=== PATIENT | female | born 2000 | race Caucasian/White ===

== ENCOUNTER 2021-02-16 22:58 | Emergency (ER) | payer OTHER, SELFPAY ==
[2021-02-17 00:19] VITALS: BP 92/54; PULSE 62; RESP 16; TEMP 36.6; O2SAT 99; BMI 20.2
[2021-02-17 00:40] LABS: Glucose Urine UA NEG (NEG); Leukocyte Esterase Urine NEG (NEG); Nitrite Urine NEG (NEG); Specific Gravity - Urine 1.015 (1.005-1.025); Urine Blood NEG (NEG); Urine Ketones NEG (NEG); Urine Protein NEG (NEG-TRACE)
[2021-02-17 00:42] LABS: Appearance Urine CLEAR; Color Urine YELLOW
[2021-02-17 00:43] LABS: UPreg QC Valid YES; Urine Pregnancy NEGATIVE (NEGATIVE)
[2021-02-17 00:53] LABS: COVID-19 Test Negative (Negative); IDNOW Serial# 9DD0AD1C
[2021-02-17 01:32] LABS: MANUAL DIFF FLAG NO
[2021-02-17 01:33] LABS: Basophils Percent Auto 0.4 % (0-2); Eosinophils Absolute Auto 0.2 X10*3/uL (0.0-0.4); Eosinophils Percent Auto 2.4 % (0-4); Hematocrit 38.7 % (37-47); Hemoglobin 12.9 g/dl (12.0-16.0); Imm Gran Abs Auto 0.01 X10*3/uL (0.00-0.03); Imm Gran Pct Auto 0.1 % (0.0-0.4); Lymphocytes Absolute Auto 2.7 X10*3/uL (1.2-4.9); Lymphocytes Percent Auto 35.1 % (20-40); Mean Corpuscular HGB Conc 33.3 g/dl (31.0-35.0); Mean Corpuscular Hemoglobin 31.7 pg (27.0-33.0); Mean Corpuscular Volume 95.1 fL (80-98); Mean Platelet Volume 8.6 fL (9.4-12.3); Monocytes Absolute Auto 0.6 X10*3/uL (0.1-1.2); Monocytes Percent Auto 7.9 % (2-11); Neutrophils Absolute Auto 4.1 X10*3/uL (2.0-8.3); Neutrophils Percent Auto 54.1 % (45-73); Platelet Count 225 X10*3/uL (160-400); Red Blood Count 4.07 X10*6/uL (4.20-5.50); Red Cell Distribution Width 13.1 % (11.0-16.0); White Blood Count 7.6 X10*3/uL (4.8-10.8)
[2021-02-17 02:03] LABS: Alanine Aminotransferase 13 U/L (0-31); Albumin Level 4.2 g/dL (3.5-5.0); Alkaline Phosphatase 47 U/L (39-117); Anion Gap 9 (12-20); Aspartate Amino Transferase 15 U/L (5-31); Bilirubin Direct 0.5 mg/dL (0.0-0.5); Bilirubin Total 1.1 mg/dL (0.0-1.0); Blood Urea Nitrogen 8 mg/dL (9-16); Calcium 9.1 mg/dL (8.4-10.2); Carbon Dioxide 30 mmol/L (22-29); Chloride 102 mmol/L (96-108); Creatinine Clr Calc Pharmacy 79.8; Estimated Glomerular Filt Rate > 60; Glucose Random 99 mg/dL (60-115); Lipase 12 U/L (8-78); Potassium 4.3 mmol/L (3.3-5.1); Sodium 137 mmol/L (135-145); Total Protein 6.7 g/dL (6.5-8.0)
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
[2021-02-17 02:33] LABS: HCG Quantitative < 2 mIU/mL
[2021-02-17] MEDS: 0.9 % Sodium Chloride 1,000 ML 999 ML IVCONT (02:34)
[2021-02-17] MEDS: ondansetron HCL 4 MG/2 ML VIAL IVPUSH (02:35)
[2021-02-17] MEDS: Magnesium Hydrox/Alum Hydrox 30 ML ORAL.SUSP PO (02:36)
[2021-02-17] MEDS: Lidocaine HCl Viscous 2 % 15 ML SOLUTION MUCOUS MEM (02:36)
== END 2021-02-17 03:15 | disposition home or self-care (01) ==
PROVIDERS: Emergency Provider Emergency Medicine
DX: E86.0 Dehydration (principal); R11.2 Nausea with vomiting, unspecified; R19.7 Diarrhea, unspecified; Z20.822 Contact with and (suspected) exposure to COVID-19; Z79.899 Other long term (current) drug therapy
CPT/HCPCS: 36415; 80048; 80076; 81003; 81025; 83690; 84702; 85025; 87635; 96361; 96374; 99283; 99284; J2405

== ENCOUNTER 2021-03-03 10:43 | Emergency (ER) | payer OTHER, SELFPAY ==
--- NOTE | ~2021-03-03 | US_ITS ---
EXAMINATION: PELVIC ULTRASOUND CLINICAL INFORMATION: Left lower abdominal and pelvic pain. Rule out ectopic . Positive urine test. COMPARISON: None TECHNIQUE: Transabdominal and transvaginal pelvic ultrasound was performed. Transvaginal exam was performed for better visualization of the uterus and ovaries. FINDINGS: Uterus measures 8.2 x 4.5 x 5.6 cm in dimension. No focal uterine lesion is seen. Endometrial thickness measures 1.3 cm. The cervix is normal appearing. The right ovary measures 2.3 x 1.6 x 1.4 cm and is normal-appearing. The left ovary measures 2.7 x 2.5 x 2.1 cm. There is a small slightly complex left ovarian cyst with slightly thickened irregular alonso measuring 1.4 x 1.1 x 1.2 cm. Arterial and venous and color flow is documented to both ovaries. There is no evidence of torsion. There is trace fluid in the pelvis. US/US pelvic and transvaginal IMPRESSION: No intrauterine seen. Small 1.4 x 1.1 x 1.2 cm left ovarian cyst. Trace fluid in the pelvis. Differential would include an early intrauterine , ectopic and missed . Correlation with quantitative beta hCG exam and follow-up OB ultrasound recommended. No evidence of ovarian torsion.
--- NOTE | ~2021-03-03 | US_ITS ---
EXAMINATION: PELVIC ULTRASOUND CLINICAL INFORMATION: Left lower abdominal and pelvic pain. Rule out ectopic . Positive urine test. COMPARISON: None TECHNIQUE: Transabdominal and transvaginal pelvic ultrasound was performed. Transvaginal exam was performed for better visualization of the uterus and ovaries. FINDINGS: Uterus measures 8.2 x 4.5 x 5.6 cm in dimension. No focal uterine lesion is seen. Endometrial thickness measures 1.3 cm. The cervix is normal appearing. The right ovary measures 2.3 x 1.6 x 1.4 cm and is normal-appearing. The left ovary measures 2.7 x 2.5 x 2.1 cm. There is a small slightly complex left ovarian cyst with slightly thickened irregular alonso measuring 1.4 x 1.1 x 1.2 cm. Arterial and venous and color flow is documented to both ovaries. There is no evidence of torsion. There is trace fluid in the pelvis. US/US OB pelvic and transvaginal IMPRESSION: No intrauterine seen. Small 1.4 x 1.1 x 1.2 cm left ovarian cyst. Trace fluid in the pelvis. Differential would include an early intrauterine , ectopic and missed . Correlation with quantitative beta hCG exam and follow-up OB ultrasound recommended. No evidence of ovarian torsion.
[2021-03-03 10:53] VITALS: BP 110/70; PULSE 93; O2SAT 99
[2021-03-03 11:30] VITALS: BP 129/76; PULSE 85; RESP 18; TEMP 36.9; O2SAT 99; BMI 21.6
[2021-03-03 11:48] LABS: Glucose Urine UA NEG (NEG); Leukocyte Esterase Urine NEG (NEG); Nitrite Urine NEG (NEG); Urine Blood NEG (NEG); Urine Ketones NEG (NEG); Urine Protein NEG (NEG-TRACE)
[2021-03-03 11:49] LABS: Appearance Urine CLEAR; Color Urine YELLOW
[2021-03-03 11:50] LABS: UPreg QC Valid YES; Urine Pregnancy POSITIVE (NEGATIVE)
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
[2021-03-03 14:06] LABS: HCG Quantitative 72 mIU/mL
[2021-03-03 15:29] VITALS: BP 112/86; PULSE 95; RESP 16; TEMP 36.7; O2SAT 99
== END 2021-03-03 15:41 | disposition home or self-care (01) ==
PROVIDERS: Physician Assistant; Emergency Provider Emergency Medicine
DX: O26.891 Other specified pregnancy related conditions, first trimester (principal); R10.31 Right lower quadrant pain; Z3A.08 8 weeks gestation of pregnancy
CPT/HCPCS: 36415; 76380; 76801; 76817; 76830; 76856; 81003; 81025; 84702; 99284

== ENCOUNTER 2021-03-11 11:06 | Outpatient (REF) | payer OTHER, SELFPAY ==
--- NOTE | ~2021-03-11 | US_ITS ---
EXAMINATION: US OBSTETRICAL ULTRASOUND CLINICAL INFORMATION: Recent left lower quadrant and pelvic pain. No intrauterine noted on prior ultrasound. Follow-up. COMPARISON: Pelvic ultrasound 03/03/2021. LMP: Unknown. Gestational age by maternal dates is unknown. TECHNIQUE: Ultrasound of the maternal pelvis is performed using transabdominal and transvaginal transducers. Transvaginal imaging is performed due to inadequate visualization transabdominally. M-mode Doppler is also performed. FINDINGS: There is interval small intrauterine gestational sac suggested with average sac dimension only 0.5 cm corresponding to a of approximately 5 weeks 0 days. There is no visible yolk sac or embryo at this time. No subchorionic hemorrhage or hematoma seen. MATERNAL ADNEXA: The right maternal ovary measures 2.1 x 1.3 x 1.7 cm. The left maternal ovary measures 2.1 x 1.9 x 2.1 cm. Again, there is a left intraovarian corpus luteum measuring approximately 1.0 cm size with typical crenated inner wall. This is decreased in size from prior measurement 1.4 x 1.1 cm. There is no interval adnexal mass or maternal pelvic ascites. US/US OB <= 14 weeks fetus IMPRESSION: 1. Small intrauterine gestational sac only 5 mm size (estimated 5 wks 0 days). 2. No visible yolk sac or embryo at this time. 3. Small left adnexal corpus luteum 1.0 cm. 4. Follow-up beta-hCG and ultrasound suggested to confirm developing intrauterine .
--- NOTE | ~2021-03-11 | US_ITS ---
EXAMINATION: US OBSTETRICAL ULTRASOUND CLINICAL INFORMATION: Recent left lower quadrant and pelvic pain. No intrauterine noted on prior ultrasound. Follow-up. COMPARISON: Pelvic ultrasound 03/03/2021. LMP: Unknown. Gestational age by maternal dates is unknown. TECHNIQUE: Ultrasound of the maternal pelvis is performed using transabdominal and transvaginal transducers. Transvaginal imaging is performed due to inadequate visualization transabdominally. M-mode Doppler is also performed. FINDINGS: There is interval small intrauterine gestational sac suggested with average sac dimension only 0.5 cm corresponding to a of approximately 5 weeks 0 days. There is no visible yolk sac or embryo at this time. No subchorionic hemorrhage or hematoma seen. MATERNAL ADNEXA: The right maternal ovary measures 2.1 x 1.3 x 1.7 cm. The left maternal ovary measures 2.1 x 1.9 x 2.1 cm. Again, there is a left intraovarian corpus luteum measuring approximately 1.0 cm size with typical crenated inner wall. This is decreased in size from prior measurement 1.4 x 1.1 cm. There is no interval adnexal mass or maternal pelvic ascites. US/US OB transvaginal IMPRESSION: 1. Small intrauterine gestational sac only 5 mm size (estimated 5 wks 0 days). 2. No visible yolk sac or embryo at this time. 3. Small left adnexal corpus luteum 1.0 cm. 4. Follow-up beta-hCG and ultrasound suggested to confirm developing intrauterine .
[2021-03-11 12:11] LABS: HCG Quantitative 2417 mIU/mL
[2021-03-12 01:26] LABS: CT PCR NOT DETECTED (Not Detect.); NG PCR NOT DETECTED (Not Detect.)
== END 2021-03-11 11:07 | disposition home or self-care (01) ==
LOC: HO.LAB 11:06
PROVIDERS: Visit Provider Obstetrics & Gynecology
DX: O26.891 Other specified pregnancy related conditions, first trimester (principal); R10.32 Left lower quadrant pain; R10.2 Pelvic and perineal pain; Z3A.01 Less than 8 weeks gestation of pregnancy
CPT/HCPCS: 36415; 76801; 76817; 84702; 87491; 87591; 99212

== ENCOUNTER 2021-03-26 14:37 | Outpatient (REF) | payer OTHER, SELFPAY ==
--- NOTE | ~2021-03-26 | US_ITS ---
EXAMINATION: US OBSTETRICAL ULTRASOUND CLINICAL INFORMATION: Cramping. Confirm intrauterine . COMPARISON: Previous exam 03/11/2021. LMP: Unknown. Gestational age by maternal dates is . Estimated date of delivery by maternal dates is . TECHNIQUE: Transabdominal first trimester OB ultrasound FINDINGS: There is a single intrauterine gestational sac with visible yolk sac, embryo/fetus, and cardiac activity. There is no significant subchorionic hemorrhage or hematoma. HR: 117 beats per minute. CRL (crown rump length): 0.56 cm (6 weeks 3 days +/- 4 days). MORGAN (estimated date of delivery): 11/16/2021 +/- 4 days. MATERNAL ADNEXA: The right maternal ovary measures 2.4 x 1.7 x 3.1 cm. normal. The left maternal ovary measures 3 x 2.1 x 2.7 cm. There is a 1.5 cm complex cyst probably representing a corpus luteum. There is no significant maternal adnexal mass. No maternal pelvic ascites. US/US OB <= 14 weeks fetus IMPRESSION: 1. Single intrauterine gestation with ultrasound gestational age of 6 weeks 3 days +/- 4 days. 2. Estimated date of delivery is 11/16/2021 +/- 4 days. 3. No maternal adnexal mass or pelvic ascites.
== END 2021-03-26 14:38 | disposition home or self-care (01) ==
LOC: HO.US 14:37
PROVIDERS: Visit Provider Obstetrics & Gynecology
DX: O26.891 Other specified pregnancy related conditions, first trimester (principal); Z3A.01 Less than 8 weeks gestation of pregnancy
CPT/HCPCS: 76801

== ENCOUNTER 2021-03-31 08:43 | Emergency (ER) | payer OTHER, SELFPAY ==
--- NOTE | ~2021-03-31 | US_ITS ---
EXAMINATION: US OBSTETRICAL ULTRASOUND CLINICAL INFORMATION: Pain and bleeding COMPARISON: Previous exam March 11 and 03/26/2021. LMP: Unknown. Gestational age by maternal dates is . Estimated date of delivery by maternal dates is . TECHNIQUE: Transabdominal first trimester OB ultrasound FINDINGS: There is a single intrauterine gestational sac with visible yolk sac, embryo/fetus, and cardiac activity. There is no significant subchorionic hemorrhage or hematoma. Size agrees with date from prior exam. HR: 142 beats per minute. CRL (crown rump length): 1.1 cm (7 weeks 2 days +/- 4 days). MORGAN (estimated date of delivery): 11/15/2021 +/- 4 days. MATERNAL ADNEXA: The right maternal ovary measures 1.8 x 1.9 x 1.4 cm. The left maternal ovary measures 2.3 x 2.1 x 2.7 cm. There is a 1.7 cm left ovarian cyst. There is no significant maternal adnexal mass. No maternal pelvic ascites. US/US OB <= 14 weeks fetus IMPRESSION: 1. Single intrauterine gestation with ultrasound gestational age of 7 weeks 2 days +/- 4 days. 2. Estimated date of delivery is 11/15/2021 +/- 4 days. 3. No maternal adnexal mass or pelvic ascites.
[2021-03-31 08:53] VITALS: BP 102/50; PULSE 104; RESP 17; TEMP 36.5; O2SAT 97; BMI 21.6
[2021-03-31 09:25] LABS: Appearance Urine HAZY; Color Urine YELLOW; Glucose Urine UA NEG (NEG); Leukocyte Esterase Urine 2+ (NEG); Nitrite Urine NEG (NEG); UACC Culture Trigger YES; UPreg QC Valid YES; Urine Blood NEG (NEG); Urine Ketones NEG (NEG); Urine Pregnancy POSITIVE (NEGATIVE); Urine Protein NEG (NEG-TRACE)
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
[2021-03-31] MEDS: Famotidine 20 MG TABLET 40 MG PO (09:47)
[2021-03-31] MEDS: Acetaminophen 325 MG TABLET 650 MG PO (09:47)
[2021-03-31 09:49] LABS: Bacteria Urine 1+ /LPF; Mucus Urine 1+ /LPF; RBC Urine 0 /HPF (0); Renal Epithelial Cells Urine 1+ /LPF; Squamous Epithelial Cell Urine 3+ /LPF; UACC CULT YES
[2021-03-31 10:05] LABS: MANUAL DIFF FLAG NO
[2021-03-31 10:13] LABS: Basophils Percent Auto 0.4 % (0-2); Eosinophils Absolute Auto 0.1 X10*3/uL (0.0-0.4); Eosinophils Percent Auto 1.6 % (0-4); Hematocrit 35.8 % (37-47); Hemoglobin 12.3 g/dl (12.0-16.0); Imm Gran Abs Auto 0.05 X10*3/uL (0.00-0.03); Imm Gran Pct Auto 0.6 % (0.0-0.4); Lymphocytes Absolute Auto 1.8 X10*3/uL (1.2-4.9); Lymphocytes Percent Auto 22.8 % (20-40); Mean Corpuscular HGB Conc 34.4 g/dl (31.0-35.0); Mean Corpuscular Hemoglobin 32.3 pg (27.0-33.0); Mean Platelet Volume 8.8 fL (9.4-12.3); Monocytes Absolute Auto 0.5 X10*3/uL (0.1-1.2); Monocytes Percent Auto 6.2 % (2-11); Neutrophils Absolute Auto 5.5 X10*3/uL (2.0-8.3); Neutrophils Percent Auto 68.4 % (45-73); Platelet Count 224 X10*3/uL (160-400); Red Blood Count 3.81 X10*6/uL (4.20-5.50)
[2021-03-31 10:41] LABS: Alanine Aminotransferase 14 U/L (0-31); Albumin Level 3.7 g/dL (3.5-5.0); Alkaline Phosphatase 42 U/L (39-117); Anion Gap 8 (12-20); Aspartate Amino Transferase 16 U/L (5-31); Bilirubin Direct 0.3 mg/dL (0.0-0.5); Bilirubin Total 0.4 mg/dL (0.0-1.0); Blood Urea Nitrogen 8 mg/dL (9-16); Calcium 8.6 mg/dL (8.4-10.2); Carbon Dioxide 24 mmol/L (22-29); Chloride 106 mmol/L (96-108); Creatinine Clr Calc Pharmacy 90.5; Estimated Glomerular Filt Rate > 60; Glucose Random 106 mg/dL (60-115); Lipase 10 U/L (8-78); Potassium 4.4 mmol/L (3.3-5.1); Sodium 134 mmol/L (135-145); Total Protein 6.1 g/dL (6.5-8.0)
== END 2021-03-31 11:25 | disposition home or self-care (01) ==
PROVIDERS: Emergency Provider Emergency Medicine
DX: O20.0 Threatened abortion (principal); R10.13 Epigastric pain; Z3A.01 Less than 8 weeks gestation of pregnancy
CPT/HCPCS: 36415; 76801; 80048; 80076; 81001; 81025; 83690; 84702; 85025; 86900; 86901; 87086; 87147; 99284; 99285

== ENCOUNTER 2021-06-01 17:48 | Emergency (ER) | payer OTHER, SELFPAY ==
[2021-06-01 18:09] VITALS: BP 124/69; PULSE 91; RESP 20; TEMP 36.7; O2SAT 97; BMI 22.2
[2021-06-01 20:56] VITALS: BP 109/65; PULSE 87; RESP 16; TEMP 36.8; O2SAT 99
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
[2021-06-01 21:35] LABS: MANUAL DIFF FLAG NO
[2021-06-01 21:36] LABS: Basophils Percent Auto 0.3 % (0-2); Eosinophils Absolute Auto 0.2 X10*3/uL (0.0-0.4); Eosinophils Percent Auto 2.2 % (0-4); Hematocrit 33.8 % (37.0-47.0); Hemoglobin 11.6 g/dl (12.0-16.0); Imm Gran Abs Auto 0.05 X10*3/uL (0.00-0.03); Imm Gran Pct Auto 0.5 % (0.0-0.4); Lymphocytes Absolute Auto 2.4 X10*3/uL (1.2-4.9); Lymphocytes Percent Auto 23.3 % (20-40); Mean Corpuscular HGB Conc 34.3 g/dl (31.0-35.0); Mean Corpuscular Hemoglobin 32.8 pg (27.0-33.0); Mean Corpuscular Volume 95.5 fL (80.0-98.0); Mean Platelet Volume 8.7 fL (9.4-12.3); Monocytes Absolute Auto 0.7 X10*3/uL (0.1-1.2); Monocytes Percent Auto 6.3 % (2-11); Neutrophils Absolute Auto 6.9 x10*3/uL (2.0-8.3); Neutrophils Percent Auto 67.4 % (45-73); Platelet Count 216 X10*3/uL (160-400); Red Blood Count 3.54 X10*6/uL (4.20-5.50); Red Cell Distribution Width 12.2 % (11.0-16.0); White Blood Count 10.3 X10*3/uL (4.8-10.8)
[2021-06-01 21:54] LABS: Alanine Aminotransferase 11 U/L (0-31); Albumin Level 3.6 g/dL (3.5-5.0); Alkaline Phosphatase 45 U/L (39-117); Anion Gap 10 (12-20); Aspartate Amino Transferase 15 U/L (5-31); Bilirubin Direct 0.2 mg/dL (0.0-0.5); Bilirubin Total 0.5 mg/dL (0.0-1.0); Blood Urea Nitrogen 11 mg/dL (9-16); Calcium 8.8 mg/dL (8.4-10.2); Carbon Dioxide 24 mmol/L (22-29); Chloride 107 mmol/L (96-108); Creatinine Clr Calc Pharmacy 99.5; Estimated Glomerular Filt Rate > 60; Glucose Random 94 mg/dL (60-115); Lipase 13 U/L (8-78); Sodium 137 mmol/L (135-145); Total Protein 6.1 g/dL (6.5-8.0)
== END 2021-06-01 23:28 | disposition home or self-care (01) ==
PROVIDERS: Emergency Provider Emergency Medicine
DX: O20.0 Threatened abortion (principal); Z3A.16 16 weeks gestation of pregnancy
CPT/HCPCS: 36415; 80048; 80076; 83690; 84702; 85025; 99283

== ENCOUNTER 2024-06-24 00:24 | Emergency (ER) | payer OTHER, SELFPAY ==
[2024-06-24 00:30] VITALS: BP 106/70; PULSE 74; RESP 18; TEMP 36.8; O2SAT 97; BMI 20.2
[2024-06-24 00:50] LABS: MANUAL DIFF FLAG NO
[2024-06-24 00:58] LABS: Basophils Percent Auto 0.3 % (0-2); Eosinophils Absolute Auto 0.2 X10*3/uL (0.0-0.4); Eosinophils Percent Auto 2.4 % (0-4); Hematocrit 39.5 % (37.0-47.0); Hemoglobin 13.6 g/dl (12.0-16.0); Imm Gran Abs Auto 0.02 X10*3/uL (0.00-0.03); Imm Gran Pct Auto 0.3 % (0.0-0.4); Lymphocytes Absolute Auto 2.9 X10*3/uL (1.2-4.9); Lymphocytes Percent Auto 42.4 % (20-40); Mean Corpuscular HGB Conc 34.4 g/dl (31.0-35.0); Mean Corpuscular Hemoglobin 31.2 pg (27.0-33.0); Mean Corpuscular Volume 90.6 fL (80.0-98.0); Mean Platelet Volume 9.1 fL (9.4-12.3); Monocytes Absolute Auto 0.4 X10*3/uL (0.1-1.2); Monocytes Percent Auto 6.3 % (2-11); Neutrophils Absolute Auto 3.3 x10*3/uL (2.0-8.3); Neutrophils Percent Auto 48.3 % (45-73); Platelet Count 202 X10*3/uL (160-400); Red Blood Count 4.36 X10*6/uL (4.20-5.50); Red Cell Distribution Width 11.9 % (11.0-16.0); White Blood Count 6.8 X10*3/uL (4.8-10.8)
[2024-06-24 01:19] LABS: Alanine Aminotransferase 18 U/L (0-31); Albumin Level 4.2 g/dL (3.5-5.0); Alkaline Phosphatase 46 U/L (39-117); Anion Gap 11 (12-20); Aspartate Amino Transferase 19 U/L (5-31); Bilirubin Total 0.2 mg/dL (0.0-1.0); Blood Urea Nitrogen 18 mg/dL (9-16); Calcium 9.1 mg/dL (8.4-10.2); Carbon Dioxide 24 mmol/L (22-29); Chloride 110 mmol/L (96-108); Creatinine Clr Calc Pharmacy 75.1; Estimated Glomerular Filt Rate > 60; Glucose Random 94 mg/dL (60-115); HCG Quantitative < 2 mIU/mL; Potassium 4.7 mmol/L (3.3-5.1); Sodium 140 mmol/L (135-145)
[2024-06-24 02:47] VITALS: BP 122/57; PULSE 62; RESP 16; TEMP 36.6; O2SAT 98
[2024-06-24 05:20] VITALS: BP 108/71; PULSE 72; RESP 20; O2SAT 98
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
[2024-06-24] MEDS: oxyCODONE HCl Immed Release 5 MG TABLET PO (06:55)
--- NOTE | 2024-06-24 07:06 | PC.NURSE ---
pt very upset in room that she is being discharged even though still in pain. aware. pt refused d/c vitals. pt on the phone crying and yelling. wants to be transfers to [facility], states not needed
[2024-06-24 07:08] VITALS: BP 108/71; PULSE 72; RESP 20; TEMP -17.7; TEMP 0; O2SAT 98
== END 2024-06-24 07:08 | disposition home or self-care (01) ==
PROVIDERS: Emergency Provider Emergency Medicine
DX: G89.29 Other chronic pain (principal); R10.2 Pelvic and perineal pain
CPT/HCPCS: 36415; 80053; 84702; 85025; 99283; 99284